=== PATIENT | male | born 1980 | race Caucasian/White ===

== ENCOUNTER 2022-02-02 14:08 | Emergency (ER) | payer OTHER, SELFPAY ==
--- NOTE | 2022-02-02 14:18 | ED.URI ---
HPI - URI/Sore Throat General Chief Complaint: Upper Respiratory Infection Stated Complaint: Sore Throat Time Seen by Provider: 02/02/22 14:37 Source: patient, RN notes reviewed and old records reviewed Mode of arrival: ambulatory Limitations: no limitations History of Present Illness HPI Narrative: 41-year-old male presents to the [facility] with complaints of a sore throat for 2 days. Has been drinking alcohol to help control pain. Patient states it feels like when he had strep throat a couple of years ago. No other complaints at this time MD elicited complaint: sore throat Related Data Allergies Allergy/AdvReac Type Severity Reaction Status Date / Time No Known Allergies Allergy Unverified 12/16/15 21:51 Review of Systems Review of Systems: All systems reviewed & are unremarkable except as noted in HPI and below Constitutional: Constitutional: Reports no additional constitutional complaints, Denies chills, Denies fever(s) and Denies headache(s) Eyes: Eyes: Reports no additional eye complaints ENT: Reports as per HPI, Denies vertigo, Denies dizziness, Denies headache(s), Denies nasal congestion and Reports sore throat Cardiovascular: Cardiovascular: Reports no additional cardiovascular complaints, Denies chest pain, Denies syncope, Denies rapid heart rate and Denies dyspnea Respiratory: Respiratory: Reports no additional respiratory complaints, Denies cough, Denies dyspnea and Denies wheezing Gastrointestinal: Gastrointestinal: Reports no additional gastrointestinal complaints, Denies abdominal pain, Denies diarrhea, Denies nausea and Denies vomiting Musculoskeletal: Musculoskeletal: Reports no additional musculoskeletal complaints and Denies numbness Integumentary/Breasts: Skin/Breast: Reports system reviewed and no additional complaints, except as docu Neurologic: Reports system reviewed and no additional complaints, except as documented, Denies vertigo, Denies dizziness, Denies syncope, Denies headache(s), Denies focal weakness and Denies numbness Psychiatric: Psychiatric: Reports no additional psychiatric complaints Allergic/Immunologic: Allergic/Immunologic: Reports no additional allergic/immunologic complaints and Denies wheezing PMFSH Past Medical History Medical History (Updated 02/02/22 @ 14:46 by Rita Artis APRN) Patient denies medical problems Surgical History Surgical History (Updated 02/02/22 @ 14:45 by Rita Artis APRN) No history of previous surgery Social History Social History (Updated 02/02/22 @ 14:45 by TISH Aguilar Smoking status: Current every day smoker Alcohol intake: current Alcohol use details: daily Gender identity (if verbalized by the patient): Male Comments At the time of my signature, I reviewed and agree with the nursing past medical, surgical, social, and family history. There is no relevant family history pertinent to the patient complaint. Exam Const: General: cooperative, healthy appearing, no acute distress, well developed and alert Nutritional Appearance: well nourished Orientation/consciousness: patient oriented x3 Limitations: no limitations HENMT: Head: normal to inspection Ears: external ears normal, TM's normal bilaterally and EAC's normal Mouth: Yes lip normal, Yes moist mucous membranes and Yes malodorous breath Teeth and gingiva: poor dentition Throat: uvula midline, abnormal tonsil bilateral erythema and hypertrophy 3+ and no uvular edema Eyes: Conjunctivae: conjunctivae normal Pupils: Equal, round and reactive pupils present Neck: Neck: normal visual inspection, no lymphadenopathy and no meningeal signs Chest: Chest palpation & inspection: normal inspection of the chest Resp: Effort & Inspection: normal respiratory effort and no use of accessory muscles Auscultation: clear to auscultation bilaterally, no crackles, no rales, no rhonchi and no wheezes Cardio: Rate: regular rate Rhythm: regular rhythm Back/Spine/Pelv
[2022-02-02 14:20] VITALS: BP 149/86; PULSE 80; RESP 16; TEMP 36.7; O2SAT 99
== END 2022-02-02 14:52 | disposition home or self-care (01) ==
PROVIDERS: Emergency Provider Nurse Practitioner
DX: J02.0 Streptococcal pharyngitis (principal); F17.200 Nicotine dependence, unspecified, uncomplicated
CPT/HCPCS: 87880; 99213; G0463

== ENCOUNTER 2023-03-15 10:41 | Emergency (ER) | payer OTHER, SELFPAY ==
--- NOTE | ~2023-03-15 | XR_ITS ---
AP and oblique views of the left ribs, and PA and lateral chest radiograph Clinical History: Pain Findings: No rib fracture is seen. Osseous alignment is anatomic. Lungs are clear, without focal cons olidation or pleural effusion. Cardiomediastinal contour is within normal limits. Soft tissues are un remarkable. Impression: No rib fracture is seen. Reviewed, dictated and finalized at [facility]. Impression: No rib fracture is seen.
[2023-03-15 10:48] VITALS: BP 157/89; PULSE 81; RESP 16; TEMP 36.4; O2SAT 97
[2023-03-15 10:53] VITALS: BP 157/89; PULSE 81; RESP 16; TEMP 36.4; O2SAT 97
--- NOTE | 2023-03-15 10:59 | ED.URI ---
HPI - URI/Sore Throat General Chief Complaint: Upper Respiratory Infection Stated Complaint: Pain when breathing in and coughing Time Seen by Provider: 03/15/23 11:20 Source: patient and RN notes reviewed Mode of arrival: ambulatory Limitations: no limitations History of Present Illness HPI Narrative: 42-year-old male presents with concern for cough, left rib pain. Reports he has been coughing for about 2 weeks, reports he was coughing today and felt a sudden poking like pain in his left rib cage. He reports it hurts worse with deep breathing or coughing. Patient is a heavy smoker. He denies any general malaise, reports fatigue. He did not taking any medications for his pain today. He denies chest pain, shortness of breath. MD elicited complaint: cough Related Data Allergies Allergy/AdvReac Type Severity Reaction Status Date / Time No Known Allergies Allergy Unverified 03/15/23 10:53 Review of Systems Review of Systems: CONSTITUTIONAL: Denies malaise, chills, sweats, or fever. EYES: Denies visual changes, redness, or discharge. ENT: Denies rhinorrhea, congestion, sinus pain, otalgia and sore throat. CARDIOVASCULAR: Denies chest pain, palpitations, or edema. RESPIRATORY: Reports cough, left chest wall pain. Denies dyspnea. GASTROINTESTINAL: Denies abdominal pain, nausea, vomiting, diarrhea SKIN: Denies rash or itching, bruising. MUSCULOSKELETAL: Denies myalgia. NEUROLOGIC: Denies headache. All systems reviewed & are unremarkable except as noted in HPI and below PMFSH Past Medical History Medical History (Updated 03/15/23 @ 12:09 by Rita Baez NP) Patient denies medical problems Surgical History Surgical History (Updated 02/02/22 @ 14:45 by Rita Artis APRN) No history of previous surgery Social History Social History (Updated 02/02/22 @ 14:45 by Rita Artis APRN) Smoking status: Current every day smoker Alcohol intake: current Alcohol use details: daily Gender identity (if verbalized by the patient): Male Comments At time of signature, agree with nursing past medical, surgical, social and family history. There is no relevant family history pertinent to the presenting complaint Exam Narrative: GENERAL: Well-appearing, well-nourished, and in no acute distress. HEAD: Normocephalic EYES: PERRLA, conjunctivae clear ENT: Nares clear. Mucous membranes moist. TM pearly glez with sharp light reflex bilaterally; no tragal tenderness. Oropharynx not erythematous without lesions. Tonsils not enlarged and without exudate, no drooling, no hoarseness, no trismus, uvula midline. NECK: Supple. No lymphadenopathy CHEST: Scattered wheezing, aeration fair, breath sounds diminished left lower lobe. No rhonchi, rales, or stridor. No respiratory distress, speaks in full sentences. HEART: Regular rate and rhythm. No murmur heard. SKIN: Warm, dry, no rash. NEURO: Alert and oriented x3. PSYCH: Normal mood and affect Course Course Emergency Course: Based on patient's exam, diminished aeration, diminished left lower lobe, 2 week history of cough and fatigue I will place the patient on a round of antibiotics, patient's left rib cage pain is likely due to muscle spasm from coughing. Patient is aware of diagnosis, understands and agrees to treatment plan. Anticipatory guidance given. Patient agrees to follow-up as directed and is aware of reasons to seek care at the emergency department. Portions of this record may have been created with voice recognition software Level of Care: Express Care Visit Reevaluation(s) Reevaluation #1: Aeration improved after DuoNeb, patient reports he feels like he can breathe a little bit easier Date: 03/15/23 Time: 12:04 Vital Signs Vital signs: Vital Signs Temperature 97.5 F L 03/15/23 10:48 Pulse Rate 81 03/15/23 10:48 Respiratory Rate 16 03/15/23 10:48 Blood Pressure 157/89 H 03/15/23 10:48 Pulse Oximetry 97 03/15/23 10:48 Oxygen Delivery Room
[2023-03-15] MEDS: IPRATROPIUM BR 0.02% INH SOLN 0.5 MG/2.5 ML VIAL INHALATION (11:31)
[2023-03-15] MEDS: ALBUTEROL SULFATE NEB 2.5 MG/3 ML INH INHALATION (11:31)
== END 2023-03-15 12:15 | disposition home or self-care (01) ==
PROVIDERS: Emergency Provider Nurse Practitioner
DX: R05.9 Cough, unspecified (principal); R07.89 Other chest pain; R06.2 Wheezing; F17.200 Nicotine dependence, unspecified, uncomplicated
CPT/HCPCS: 71046; 71100; 94640; 99213; G0463

== ENCOUNTER 2024-02-28 14:14 | Emergency (ER) | payer OTHER, SELFPAY ==
[2024-02-28 14:30] VITALS: BP 137/90; PULSE 74; RESP 22; O2SAT 98
--- NOTE | 2024-02-28 14:34 | ED.URI ---
HPI - URI/Sore Throat General Chief Complaint: Shortness of Breath/Dyspnea Stated Complaint: side pain Time Seen by Provider: 02/28/24 14:34 Source: patient and RN notes reviewed Mode of arrival: ambulatory Limitations: no limitations History of Present Illness HPI Narrative: 43-year-old male presents with concern for left chest wall pain. He reports pain going on for about 2 weeks. He is a heavy smoker, reports he has not smoked since Wednesday due to his symptoms. He reports he was coughing a lot but he has been trying not to cough due to the pain. Reports if he is it is very still he does not have pain with the pain is made worse with deep breathing, coughing, movements. He denies fever, chills, sweats. He denies any rash, bruising to the chest. MD elicited complaint: other (chest wall pain) Related Data Allergies Allergy/AdvReac Type Severity Reaction Status Date / Time No Known Allergies Allergy Verified 02/28/24 14:19 Review of Systems Review of Systems: CONSTITUTIONAL: Denies malaise, chills, sweats, or fever. EYES: Denies visual changes, redness, or discharge. ENT: Denies rhinorrhea, congestion, sinus pain, otalgia and sore throat. CARDIOVASCULAR: Denies palpitations, or edema. RESPIRATORY: Reports cough, dyspnea, left rib/chest wall pain. GASTROINTESTINAL: Denies abdominal pain, nausea, vomiting, diarrhea SKIN: Denies rash or itching. MUSCULOSKELETAL: Denies myalgia. NEUROLOGIC: Denies headache. All systems reviewed & are unremarkable except as noted in HPI and below PMFSH Past Medical History Medical History (Updated 02/28/24 @ 15:14 by Rita Baez NP) Patient denies medical problems Surgical History Surgical History (Updated 02/02/22 @ 14:45 by Rita Artis APRN) No history of previous surgery Social History Social History (Updated 02/02/22 @ 14:45 by Rita Artis APRN) Smoking status: Current every day smoker Alcohol intake: current Alcohol use details: daily Gender identity (if verbalized by the patient): Male Comments At time of signature, agree with nursing past medical, surgical, social and family history. There is no relevant family history pertinent to the presenting complaint Exam Narrative: GENERAL: Well-appearing, well-nourished, and in no acute distress. HEAD: Normocephalic EYES: PERRLA, conjunctivae clear ENT: Nares clear, turbinates edematous and erythematous, clear discharge. Mucous membranes moist. TM pearly glez with dull light reflex bilaterally; no tragal tenderness. Oropharynx not erythematous without lesions. Tonsils not enlarged and without exudate, no drooling, no hoarseness, no trismus, uvula midline. NECK: Supple. No lymphadenopathy CHEST: Clear to auscultation, breath sounds equal. No wheezing, rhonchi, rales, or stridor. No respiratory distress, speaks in full sentences. HEART: Regular rate and rhythm. No murmur heard. SKIN: Warm, dry, no rash. NEURO: Alert and oriented x3. PSYCH: Normal mood and affect Course Course Emergency Course: I recommended that we do a chest x-ray however we do not have an x-ray instrumentation engineering technician at this clinic today, patient does not want to drive to to get an x-ray. Patient is aware of, understands and agrees to treatment plan. Anticipatory guidance given. Patient agrees to follow-up as directed and is aware of reasons to seek care at the emergency department. Portions of this record may have been created with voice recognition software Level of Care: Express Care Visit Reevaluation(s) Reevaluation #1: Patient reports side pain has improved, aeration has much improved after DuoNeb. While I still feel this patient could benefit from a chest x-ray, he is unwilling to go to the ER or to another it Express Care for an x-ray. I advised him to take his medications as described in if he has worsening symptoms he should go to the ER. Date: 02/28/24 Time: 15:10 Vital Signs Vital signs: Reviewed. YOAN SALINAS/Ramona Lange
[2024-02-28] MEDS: methylPREDNISolone SOD SUCC 125 MG VIAL IM (14:54)
[2024-02-28] MEDS: IPRATROPIUM 0.5 MG/ALBUTEROL SULFATE 2.5 MG AMPUL.NEB 3 ML INHALATION (14:55)
== END 2024-02-28 15:30 | disposition home or self-care (01) ==
PROVIDERS: Emergency Provider Nurse Practitioner
DX: R06.02 Shortness of breath (principal); F17.200 Nicotine dependence, unspecified, uncomplicated
CPT/HCPCS: 94640; 96372; 99213; G0463; J2919

== ENCOUNTER → 2024-05-09 09:28 | Outpatient (CLI) | payer OTHER, SELFPAY ==
--- NOTE | ~2024-05-09 | XR_ITS ---
XR chest 2V 05/09/2024 09:56 Indication: Emphysema. Procedure: 2 view chest Comparison: 03/15/2023 Findings: Heart size normal. No focal air space disease, pulmonary edema, pleural effusion or suspect ed pneumothorax. There is healing left ninth rib fracture with callus formation. Impression: 1: No acute cardiopulmonary disease. Reviewed, dictated and finalized at location B. Impression: 1: No acute cardiopulmonary disease.
== END ==
LOC: EXPCRAD 09:31
PROVIDERS: PCP Emergency Medicine; Visit Provider Emergency Medicine
DX: J43.2 Centrilobular emphysema (principal)
CPT/HCPCS: 71046

== ENCOUNTER → 2024-12-03 12:32 | Outpatient (CLI) | payer OTHER, SELFPAY ==
--- NOTE | ~2024-12-03 | XR_ITS ---
Lumbosacral Spine: AP and lateral views Clinical History: Pain Findings: The normal lordotic curve is maintained. No fracture evident. There is 8mm anterolisthesis of L5 over S1. There is moderate degenerative disc narrowing at L5-S1. There is advanced facet arthro clay throughout the lumbar spine. The sacroiliac joints are normally outlined. Impression: 8 mm anterolisthesis of L5 over S1. Moderate degenerative spondylosis, as above. Reviewed, dictated and finalized at location M. Impression: 8 mm anterolisthesis of L5 over S1. Moderate degenerative spondylosis, as above.
== END ==
PROVIDERS: PCP Emergency Medicine; Visit Provider Emergency Medicine
DX: M43.17 Spondylolisthesis, lumbosacral region (principal); M47.816 Spondylosis without myelopathy or radiculopathy, lumbar region
CPT/HCPCS: 72100

== ENCOUNTER 2024-12-22 11:20 | Emergency (ER) | payer OTHER, SELFPAY ==
[2024-12-22 11:36] VITALS: BP 140/96; PULSE 89; RESP 16; TEMP 36.4; O2SAT 96
[2024-12-22 12:02] LABS: EDSTREPNEGPOS1 Negative (Negative)
--- NOTE | 2024-12-22 12:11 | ED_ITS ---
HPI - URI/Sore Throat General Chief Complaint: Upper Respiratory Infection Stated Complaint: throat hurts,dry Source: patient and RN notes reviewed Mode of arrival: ambulatory Limitations: no limitations History of Present Illness HPI Narrative: 44-year-old male presents to the [facility] complaining of sore throat for 2 weeks. States he has had a sore throat, cough, body aches, voice hoarseness, throat dryness with that is not getting any better. He reports he is coughing phlegm up and says that it is thick. He says when his throat is dry it makes it hard to swallow until he drinks some water and then his throat feels better. He says he has some heartburn after eating food sometimes. He has a history of COPD and uses an inhaler daily for it. He denies any chest pain, shortness of breath, dysphagia. Related Data Home Medications ?Medication ?Instructions ?Recorded ?Confirmed ?Last Taken ?Type cyclobenzaprine 10 mg tablet 10 mg PO Q12H 12/22/24 12/22/24 Unknown History tiotropium bromide 18 mcg capsule 1 cap inhalation DAILY 12/22/24 12/22/24 Unknown History with inhalation device Allergies Allergy/AdvReac Type Severity Reaction Status Date / Time No Known Allergies Allergy Verified 12/22/24 11:23 Review of Systems Review of Systems: CONSTITUTIONAL: Denies fever, chills, or sweats. EYES: Denies visual changes, redness, or discharge. ENT: Denies rhinorrhea, congestion, dysphagia, swelling, or otalgia. Positive for sore throat, voice hoarseness, and dry throat. CARDIOVASCULAR: Denies chest pain, palpitations, or edema. RESPIRATORY: Positive for cough. negative for dyspnea. GASTROINTESTINAL: Denies abdominal pain, nausea, vomiting, or diarrhea. GENITOURINARY: Denies dysuria or hematuria. SKIN: Denies rash or itching. MUSCULOSKELETAL: Denies back pain, joint pain, or myalgia. NEUROLOGIC: Denies headache, numbness, or weakness. PSYCHIATRIC: Denies anxiety or depression. All other systems reviewed are negative, except as documented in HPI. [facility] Past Medical History Medical History Patient denies medical problems Surgical History Surgical History No history of previous surgery Social History Social History Smoking status: Current every day smoker Alcohol intake: current Alcohol use details: daily Gender identity (if verbalized by the patient): Male Comments At the time of my signature, I reviewed and agree with the nursing past medical, surgical, social, and family history. There is no relevant family history pertinent to the patient complaint. Exam Narrative: GENERAL: This is a well-nourished, well-developed adult, in no apparent distress. They are non ill-appearing, nontoxic appearing. HEAD: normocephalic, atraumatic. EYES: Sclera clear/white. Vision is grossly intact. EARS: External ears normal, auditory canals clear and without drainage, TMs normal without perforation. Hearing grossly intact. NOSE: External nose normal with no obvious nasal discharge, nares without redness, no rhinorrhea. THROAT: Mucous membranes moist, posterior pharynx clear without exudate, uvula is injected and midline without swelling. NECK: Neck supple, mild tenderness with lymphadenopathy, no masses or thy romegaly. CARDIOVASCULAR: Regular rate and rhythm without murmurs, gallops, or rubs. RESPIRATORY: Lung sounds are diminished bilaterally. Breath sounds equal bilaterally. No wheezes, rales, or rhonchi. SKIN: warm, Dry, intact with no suspicious lesions or rash, good texture and turgor. NEURO: awake, alert, and oriented to person, place and time. There were no obvious focal neurologic abnormalities. EXTREMITIES: No joint tenderness, effusion, or edema noted. Course Course Emergency Course: Patient is aware of diagnosis, understands and agrees to treatment plan. Anticipatory guidance given. Patient agrees to follow-up as directed and is aware of reasons to seek care at the emergency department. Portions of this record may have been created with voice recognition software Level of Care: Express Care Visit Vital Signs Vital signs: Vital Signs Temperature 97.6 F 12/22/24 11:36 Pulse Rate 89 12/22/24 11:36 Respiratory Rate 16 12/22/24 11:36 Blood Pressure 140/96 H 12/22/24 11:36 Pulse Oximetry 96 12/22/24 11:36 Oxygen Delivery Room Air 12/22/24 11:36 Temperature 97.6 F 12/22/24 11:36 Pulse Rate 89 12/22/24 11:36 Respiratory Rate 16 12/22/24 11:36 Blood Pressure 140/96 H 12/22/24 11:36 Pulse Oximetry 96 12/22/24 11:36 Oxygen Delivery Room Air 12/22/24 11:36 Reviewed MDM - URI/Sore Throat MDM Narrative Medical decision making narrative: His rapid strep was negative. A throat culture will be sent off he will be notified of the test positive for strep. Since patient is not feeling better for the last 2 weeks despite conservative therapy, having a purulent cough, having a history of COPD, will treat for a purulent bronchitis with doxycycline and prednisone. There are no suspicious lesions, no obvious masses or swelling to the neck or throat. Some of his symptom could be complicated by laryngeal reflux related to acid reflux. Will give him Pepcid for symptom management as well. He continues to smoke cigarettes and drink alcohol. Recommended he may need to be seen ears nose and throat specialist if his symptoms persist. Smoking sensation encouraged along with cessation of alcohol use. Discussed physical exam findings. Advised supportive measures and signs/symptoms to go to the ER. Pt is appropriate for outpt treatment and f/u. Differential Diagnosis Differential diagnosis: Likely viral infection, bronchitis, pharyngitis and other (laryngeal reflux, acid reflux) Lab Data Attestation: I reviewed the patient's lab results. Labs: Lab Results 12/22/24 Range/Units 11:45 POC Grp A Strep Screen Negative (Negative) Critical Care Time Critical Care Time Critical Care Time: No Discharge Plan Discharge Clinical Impression: Acute purulent bronchitis Patient Disposition: Home, Self-Care Condition: Stable Instructions: Antibiotic Form, Acute Bronchitis (ED) Additional Instructions: Your rapid strep swab was negative today at [facility]. You will be notified in a few days if the culture comes back positive for strep Acute bronchitis can be contagious because it is usually caused by infection with a virus or bacteria. It is usually for a few days but you can be contagious for up to one week. Avoid crowds until you do not have a fever and symptoms are improved Take doxycycline as directed. Please finish antibiotic completely even if you start to feel better. Take the prednisone as directed Take Pepcid as directed Recommend Flonase spray and Zyrtec (or Claritin/Suly) over the counter Cough syrup may cause drowsiness; avoid driving or take it at night time. Please stop smoking cigarettes Tylenol every 8 hours as needed for pain Symptomatic treatment includes: rest, fluids, and increase humidity of the air at home. Follow up with your primary care provider as needed in 1 week You May need to see a ears nose and throat specialist if you continue to have these throat problems. Go to the ER if you develop difficulty breathing, swelling in your throat and neck, difficulty swallowing, worsening symptoms or concerns Patient Language: Georgian Prescriptions: New prednisone 20 mg tablet 40 mg PO DAILY 5 Days Qty: 10 0RF doxycycline monohydrate 100 mg capsule 100 mg PO BID 7 Days Qty: 14 0RF famotidine [Pepcid] 40 mg tablet 40 mg PO DAILY Qty: 30 0RF No Action cyclobenzaprine 10 mg tablet 10 mg PO Q12H tiotropium bromide 18 mcg capsule, w/inhalation device 1 cap INHALATION DAILY Follow-up/Referrals: [place] MD [Physician] - Christian Wolfe MD [Primary Care Provider] - 1 Week Time of Disposition: 12:18
== END 2024-12-22 12:21 | disposition home or self-care (01) ==
PROVIDERS: PCP Emergency Medicine
DX: J20.9 Acute bronchitis, unspecified (principal); F17.200 Nicotine dependence, unspecified, uncomplicated; J44.9 Chronic obstructive pulmonary disease, unspecified
CPT/HCPCS: 87081; 87880; 99213; G0463